=== PATIENT | male | born 1955 | race African-American/Black ===

== ENCOUNTER 2018-01-12 13:27 | Emergency (ER) | payer OTHER, MEDICAID ==
[~2018-01-12] VITALS: Ht 177.8 cm; Wt 86.6 kg
[2018-01-12 13:58] LABS: BASOPHILS % 0.6 % (0.0-2.0); EOSINOPHILS % 0.4 % (0.0-5.0); HEMATOCRIT. 39.8 % (42.0-52.0); HEMOGLOBIN. 13.1 g/dL (14.0-18.0); LYMPHOCYTES % 10.2 % (20.0-50.0); MEAN CORPUSCULAR HEMOGLOBIN 23.6 pg (28.0-32.0); MEAN CORPUSCULAR VOLUME 71.8 fL (80.0-94.0); MEAN PLATELET VOLUME 7.6 fl (7.4-10.4); MONOCYTES % 3.7 % (2.0-8.0); NEUTROPHILS % 85.1 % (40.0-76.0); PLATELET 232 x1000/uL (130-400); RED BLOOD CELL COUNT 5.54 mill/uL (4.7-6.1); RED CELL DISTRIBUTION WIDTH 17.9 % (11.6-14.6)
[2018-01-12 14:05] LABS: CHLORIDE 103 mEq/L (98-107)
[2018-01-12 14:06] LABS: PARTIAL THROMBOPLASTIN TIME 42.4 sec (23.4-31.0); PROTHROMBIN TIME 9.8 sec (9.1-11.1)
[2018-01-12 14:09] LABS: ETHANOL BLOOD < 10 mg/dL
[2018-01-12 14:12] LABS: LDL CHOLESTEROL 90 mg/dL (5-100)
[2018-01-12 14:13] LABS: CREATINE KINASE 287 IU/L (39-308)
[2018-01-12 15:07] LABS: CLARITY URINE CLEAR (CLEAR); COLOR URINE YELLOW (YELLOW); KETONES URINE NEGATIVE (NEGATIVE); LEUKOCYTE ESTERASE URINE NEGATIVE (NEGATIVE); NITRITE URINE NEGATIVE (NEGATIVE); OCCULT BLOOD URINE 2+ (NEGATIVE); PROTEIN URINE 2+ (NEGATIVE); SPECIFIC GRAVITY URINE 1.004 (1.005-1.030); UROBILINOGEN URINE 0.2 E.U./dL (0.2-1.0)
[2018-01-12 15:30] LABS: *AMPHETAMINES SCREEN URINE NEGATIVE (NEGATIVE); *BARBITURATES SCREEN URINE NEGATIVE (NEGATIVE); *BENZODIAZEPINES SCREEN URINE NEGATIVE (NEGATIVE); *COCAINE SCREEN URINE NEGATIVE (NEGATIVE); METHADONE URINE SCREEN NEGATIVE (NEGATIVE)
[2018-01-12 15:31] LABS: CANNABINOID URINE SCREEN NEGATIVE (NEGATIVE); OPIATES URINE SCREEN NEGATIVE (NEGATIVE); PHENCYCLIDINE URINE SCREEN NEGATIVE (NEGATIVE)
[2018-01-12] MEDS ORDERED: CLONIDINE 0.1MG TABLET PO PRN (16:30)
[2018-01-12] MEDS ORDERED: ACETAMINOPHEN 325MG TABLET PO PRN (16:30)
[2018-01-12] MEDS ORDERED: HYDROCODONE/ACETAMINOPHEN 5/325MG TABLET PO PRN (16:30)
[2018-01-12] MEDS ORDERED: ONDANSETRON HCL 4MG/2ML INJ IV PRN (16:30)
[2018-01-12] MEDS ORDERED: ACETAMINOPHEN 650MG SUPP PR PRN (16:30)
[2018-01-12] MEDS ORDERED: MAGNESIUM/ALUMINUM HYDROXIDE/SIMETHICONE 30ML UDC PO PRN (16:30)
[2018-01-12] MEDS ORDERED: SODIUM CHLORIDE 0.45% 1,000 ML IV SCH ×2 (16:30→21:45)
[2018-01-12] MEDS ORDERED: DIPHENHYDRAMINE 50MG/ML VIAL IV PRN (16:30)
[2018-01-12] MEDS ORDERED: GUAIFENESIN 200MG/10ML SUGAR FREE UDC PO PRN (16:30)
[2018-01-12] MEDS ORDERED: CEFTRIAXONE 1,000 MG in DEXTROSE 5% WATER 50 ML IV SCH (16:30)
[2018-01-12] MEDS ORDERED: AMLODIPINE 5MG TABLET PO SCH ×2 (16:30→21:45)
[2018-01-12] MEDS ORDERED: IPRATROPIUM/ALBUTEROL 0.5-3(2.5)MG/3ML NEB INH PRN (16:30)
[2018-01-12] MEDS ORDERED: DOCUSATE SODIUM 100MG CAPSULE PO PRN (16:30)
[2018-01-12] MEDS ORDERED: AZITHROMYCIN 500 MG in DEXT 5% WATER 250 ML IV SCH (16:30)
[2018-01-12] MEDS ORDERED: LEVOFLOXACIN 500MG PREMIX 100 ML IV SCH (16:45)
[2018-01-12] MEDS ORDERED: LORAZEPAM 0.5MG TABLET PO PRN (16:45)
[2018-01-12] MEDS ORDERED: IPRATROPIUM/ALBUTEROL 0.5-3(2.5)MG/3ML NEB HHN SCH ×2 (18:00→21:45)
[2018-01-12] MEDS ORDERED: NA PHOS,M-B/NA PHOS,DI-BA ENEMA 118ML PR PRN (21:00)
[2018-01-12] MEDS ORDERED: FAMOTIDINE 20MG/2ML VIAL IV SCH ×2 (21:00→21:45)
[2018-01-12] MEDS ORDERED: GUAIFENESIN 600MG ER TABLET PO SCH ×2 (21:00→21:45)
[2018-01-12] MEDS ORDERED: ATORVASTATIN CALCIUM 10MG TABLET PO SCH ×2 (21:00→21:45)
[2018-01-12 21:42] VITALS: BP 137/63
[2018-01-13] MEDS ORDERED: ASPIRIN 81MG EC TABLET PO SCH ×2 (09:00)
[2018-01-13] MEDS ORDERED: CLOPIDOGREL 75MG TABLET PO SCH ×2 (09:00)
[2018-01-13] MEDS ORDERED: LEVOFLOXACIN 250MG PREMIX 50 ML IV SCH (17:00)
== END 2018-01-12 21:43 | disposition left against medical advice (07) ==
LOC: ER 14:32 → SUPCPDRO 15:52 → EDBEDREQSVC 16:17 → EDBEDREQTM 16:17 → EDBEDREQ 16:17 → CANRESERV 21:21 → ENRESERV 21:21 → ER 21:43 → CANBEDREQ 23:26
DX: G45.9 Transient cerebral ischemic attack, unspecified (principal); I13.0 Hypertensive heart and chronic kidney disease with heart failure and stage 1 through stage 4 chronic kidney disease, or unspecified chronic kidney disease; N18.9 Chronic kidney disease, unspecified; I50.43 Acute on chronic combined systolic (congestive) and diastolic (congestive) heart failure; N17.9 Acute kidney failure, unspecified; I25.2 Old myocardial infarction; F41.9 Anxiety disorder, unspecified; Z98.61 Coronary angioplasty status; F12.10 Cannabis abuse, uncomplicated; F17.210 Nicotine dependence, cigarettes, uncomplicated; Z88.0 Allergy status to penicillin; Z71.6 Tobacco abuse counseling; Z88.5 Allergy status to narcotic agent; D72.829 Elevated white blood cell count, unspecified; D64.9 Anemia, unspecified; R94.31 Abnormal electrocardiogram [ECG] [EKG]
CPT/HCPCS: 36415; 70450; 71045; 76770; 80053; 80305; 81003; 82550; 82962; 83721; 83880; 84484; 85025; 85610; 85730; 87040; 87086; 93005; 93970; 96365; 99291; 99406; G0482; J1956

== ENCOUNTER 2019-03-25 19:58 | Emergency (ER) | payer MEDICAID, OTHER ==
[2019-03-25] MEDS ORDERED: ONDANSETRON HCL 4MG/2ML INJ IV STA (21:17)
[2019-03-25] MEDS ORDERED: ASPIRIN 81MG TABLET PO ONE (21:30)
[2019-03-25 22:01] LABS: CLARITY URINE CLEAR (CLEAR); COLOR URINE YELLOW (YELLOW); KETONES URINE NEGATIVE (NEGATIVE); LEUKOCYTE ESTERASE URINE NEGATIVE (NEGATIVE); NITRITE URINE NEGATIVE (NEGATIVE); OCCULT BLOOD URINE 1+ (NEGATIVE); PH URINE 6.5 (4.5-8.0); PROTEIN URINE 3+ (NEGATIVE); SPECIFIC GRAVITY URINE 1.014 (1.005-1.030)
[2019-03-25 22:03] LABS: BASOPHILS % 0.6 % (0.0-2.0); EOSINOPHILS % 1.6 % (0.0-5.0); HEMATOCRIT. 40.1 % (42.0-52.0); LYMPHOCYTES % 15.6 % (20.0-50.0); MEAN CORPUSCULAR HEMOGLOBIN 23.5 pg (28.0-32.0); MEAN CORPUSCULAR VOLUME 72.7 fL (80.0-94.0); MEAN PLATELET VOLUME 7.8 fl (7.4-10.4); MONOCYTES % 7.7 % (2.0-8.0); NEUTROPHILS % 74.5 % (40.0-76.0); PLATELET 206 x1000/uL (130-400); RED BLOOD CELL COUNT 5.52 mill/uL (4.7-6.1); RED CELL DISTRIBUTION WIDTH 17.2 % (11.6-14.6)
[2019-03-25 22:06] LABS: CHLORIDE 106 mEq/L (98-107); INR 0.9; PARTIAL THROMBOPLASTIN TIME 37.8 sec (23.4-31.0); PROTHROMBIN TIME 9.7 sec (9.6-11.0)
[2019-03-26 02:24] VITALS: BP 145/94
== END 2019-03-26 02:31 | disposition left against medical advice (07) ==
LOC: ER 19:58 → EDBEDREQ 03-26 01:20 → ER 03-26 02:31 → CANBEDREQ 03-26 03:10
DX: R07.89 Other chest pain (principal); R94.31 Abnormal electrocardiogram [ECG] [EKG]; I10 Essential (primary) hypertension
CPT/HCPCS: 36415; 71045; 74176; 80053; 81003; 83690; 83880; 84484; 85025; 85610; 85730; 93005; 96374; 99284; J2405

== ENCOUNTER 2019-03-27 15:22 | Inpatient (IN) | payer OTHER ==
[~2019-03-27] VITALS: Ht 177.8 cm; Wt 77.6 kg
[2019-03-27] MEDS ORDERED: ASPIRIN 81MG TABLET PO ONE (18:00)
[2019-03-27 18:21] LABS: BASOPHILS % 0.8 % (0.0-2.0); EOSINOPHILS % 0.8 % (0.0-5.0); HEMATOCRIT. 43.2 % (42.0-52.0); HEMOGLOBIN. 13.8 g/dL (14.0-18.0); LYMPHOCYTES % 19.8 % (20.0-50.0); MEAN CORPUSCULAR HEMOGLOBIN 23.4 pg (28.0-32.0); MEAN CORPUSCULAR VOLUME 73.1 fL (80.0-94.0); MEAN PLATELET VOLUME 7.4 fl (7.4-10.4); NEUTROPHILS % 71.6 % (40.0-76.0); PLATELET 225 x1000/uL (130-400); RED BLOOD CELL COUNT 5.91 mill/uL (4.7-6.1); RED CELL DISTRIBUTION WIDTH 17.4 % (11.6-14.6)
[2019-03-27 18:24] LABS: CHLORIDE 107 mEq/L (98-107)
[2019-03-27 18:29] LABS: ETHANOL BLOOD < 10 mg/dL
[2019-03-27 18:49] LABS: *BENZODIAZEPINES SCREEN URINE NEGATIVE (NEGATIVE)
[2019-03-27 18:50] LABS: *BARBITURATES SCREEN URINE NEGATIVE (NEGATIVE); *COCAINE SCREEN URINE NEGATIVE (NEGATIVE); METHADONE URINE SCREEN NEGATIVE (NEGATIVE); OPIATES URINE SCREEN NEGATIVE (NEGATIVE); PHENCYCLIDINE URINE SCREEN NEGATIVE (NEGATIVE)
[2019-03-27 18:51] LABS: CANNABINOID URINE SCREEN PRESUMTIVE POSITIVE (NEGATIVE)
[2019-03-27 18:52] LABS: *AMPHETAMINES SCREEN URINE NEGATIVE (NEGATIVE)
[2019-03-28 08:30] VITALS: BP 167/86
[2019-03-28] MEDS ORDERED: FURO-152 MT (10:49)
[2019-03-28] MEDS ORDERED: ASPI-1497 MT (10:49)
[2019-03-28] MEDS ORDERED: METO100T16 MT (10:49)
[2019-03-28] MEDS ORDERED: CLOP75TA4 PO (10:49)
[2019-03-28] MEDS ORDERED: ATOR20TA MT (10:49)
[2019-03-28] MEDS ORDERED: LORA-250 MT (10:49)
[2019-03-28] MEDS ORDERED: HYDRALAZINE 20MG/ML VIAL IV PRN (11:30)
[2019-03-28 12:00] VITALS: BP 179/96
[2019-03-28] MEDS ORDERED: REGADENOSON 0.4 MG/5 ML IV SCH (12:30)
[2019-03-28] MEDS: METOPROLOL TARTRATE 50MG TABLET PO SCH ×2 (12:45→21:45)
[2019-03-28] MEDS ORDERED: REGADENOSON 0.4 MG/5 ML IV ONE (13:27)
[2019-03-28] MEDS ORDERED: NITROGLYCERIN 0.4MG TABLET SL SL ONE (14:15)
[2019-03-28] MEDS: NITROGLYCERIN 0.4MG TABLET SL SL PRN (14:31)
[2019-03-28] MEDS ORDERED: LORAZEPAM 0.5MG TABLET PO PRN (14:45)
[2019-03-28] MEDS ORDERED: CLOPIDOGREL 75MG TABLET PO NR (15:00)
[2019-03-28] MEDS: NITROGLYCERIN OINT 1GM/INCH UDPKT TD SCH ×2 (15:00→17:43)
[2019-03-28 16:00] VITALS: BP 179/67
[2019-03-28] MEDS ORDERED: GUAIFENESIN 200MG/10ML SUGAR FREE UDC PO PRN (16:15)
[2019-03-28] MEDS ORDERED: ACETAMINOPHEN 325MG TABLET PO PRN (16:15)
[2019-03-28] MEDS ORDERED: ACETAMINOPHEN 650MG SUPP PR PRN (16:15)
[2019-03-28] MEDS ORDERED: DIPHENHYDRAMINE 50MG/ML VIAL IV PRN (16:15)
[2019-03-28] MEDS ORDERED: LORAZEPAM 2MG/ML CPJ IV PRN (16:15)
[2019-03-28] MEDS ORDERED: HYDROCODONE/ACETAMINOPHEN 5/325MG TABLET PO PRN (16:15)
[2019-03-28] MEDS ORDERED: IPRATROPIUM/ALBUTEROL 0.5-3(2.5)MG/3ML NEB HHN PRN (16:15)
[2019-03-28] MEDS ORDERED: DOCUSATE SODIUM 100MG CAPSULE PO PRN (16:15)
[2019-03-28 17:18] LABS: BASOPHILS % 0.5 % (0.0-2.0); EOSINOPHILS % 0.2 % (0.0-5.0); HEMATOCRIT. 42.6 % (42.0-52.0); HEMOGLOBIN. 13.3 g/dL (14.0-18.0); MEAN CORPUSCULAR HEMOGLOBIN 22.8 pg (28.0-32.0); MEAN CORPUSCULAR VOLUME 72.9 fL (80.0-94.0); MEAN PLATELET VOLUME 7.7 fl (7.4-10.4); NEUTROPHILS % 84.3 % (40.0-76.0); PLATELET 216 x1000/uL (130-400); RED BLOOD CELL COUNT 5.84 mill/uL (4.7-6.1)
[2019-03-28 17:24] LABS: INR 0.9; PROTHROMBIN TIME 10.2 sec (9.6-11.0)
[2019-03-28 17:38] LABS: BG BASE EXCESS 0.4 mmol/L (-2.0-2.0); BG CARBOXYHEMOGLOBIN 0.8 % (0.5-1.5); BG DEOXYHEMOGLOBIN 1.8 % (0.0-5.0); BG FRACTION INSPIRED OXYGEN 21; BG HCO3 ACT 22.4 mmol/L (22.0-26.0); BG METHEMOGLOBIN 0.6 % (0.0-1.5); BG OXYGEN SATURATION 98.2 % (92.0-98.5); BG OXYHEMOGLOBIN 96.8 % (94.0-97.0); BG PCO2 29.1 mmHg (35.0-45.0); BG PH 7.504 (7.350-7.450); BG SAMPLE SITE RIGHT RADIAL; BG TOTAL HEMOGLOBIN 14.1 g/dL (12.0-18.0); BG VENT MODE ROOM AIR
[2019-03-28] MEDS: FAMOTIDINE 20MG/2ML VIAL IV SCH (17:43)
[2019-03-28] MEDS ORDERED: AMLO5TAB88 MT (18:53)
[2019-03-28] MEDS ORDERED: LOSA100T32 MT (18:53)
[2019-03-28] MEDS ORDERED: CILO100T PO (18:53)
[2019-03-28 20:00] VITALS: BP 157/101
[2019-03-29] VITALS: BP 153/78
[2019-03-29] MEDS ORDERED: DEXT 5%/0.45% NACL 1000ML 1,000 ML IV SCH
[2019-03-29] MEDS: NITROGLYCERIN OINT 1GM/INCH UDPKT TD SCH ×3 (00:13→13:29)
[2019-03-29 04:00] VITALS: BP 147/71
[2019-03-29 08:00] VITALS: BP 148/78
[2019-03-29 08:01] LABS: BASOPHILS % 0.7 % (0.0-2.0); HEMATOCRIT. 37.4 % (42.0-52.0); HEMOGLOBIN. 12.3 g/dL (14.0-18.0); LYMPHOCYTES % 22.2 % (20.0-50.0); MEAN CORPUSCULAR HEMOGLOBIN 23.9 pg (28.0-32.0); MEAN CORPUSCULAR VOLUME 72.6 fL (80.0-94.0); MEAN PLATELET VOLUME 7.8 fl (7.4-10.4); MONOCYTES % 7.8 % (2.0-8.0); NEUTROPHILS % 68.3 % (40.0-76.0); PLATELET 194 x1000/uL (130-400); RED BLOOD CELL COUNT 5.16 mill/uL (4.7-6.1); RED CELL DISTRIBUTION WIDTH 16.9 % (11.6-14.6)
[2019-03-29 08:09] LABS: VITAMIN B12 SERUM 291 pg/mL (211-911)
[2019-03-29] MEDS ORDERED: ASPIRIN 81MG TABLET PO SCH (09:00)
[2019-03-29] MEDS ORDERED: CLOPIDOGREL 75MG TABLET PO SCH (09:00)
[2019-03-29] MEDS: METOPROLOL TARTRATE 50MG TABLET PO SCH (09:00)
[2019-03-29] MEDS ORDERED: POTASSIUM CHLORIDE 20MEQ TABLET SR PO NR (09:15)
[2019-03-29] MEDS: FAMOTIDINE 20MG/2ML VIAL IV SCH (09:44)
[2019-03-29 12:00] VITALS: BP 168/88
== END 2019-03-29 13:40 | disposition left against medical advice (07) | DRG 311 ==
LOC: ER 15:22 → 6WST 03-28 00:54 → ENRESERV 03-28 07:25
PROVIDERS: ADMIT Internal Medicine; ATTEND Internal Medicine
DX: I24.9 Acute ischemic heart disease, unspecified (principal); I13.0 Hypertensive heart and chronic kidney disease with heart failure and stage 1 through stage 4 chronic kidney disease, or unspecified chronic kidney disease; I47.2 Ventricular tachycardia; E78.5 Hyperlipidemia, unspecified; F17.210 Nicotine dependence, cigarettes, uncomplicated; F41.9 Anxiety disorder, unspecified; I25.5 Ischemic cardiomyopathy; I45.10 Unspecified right bundle-branch block; I50.9 Heart failure, unspecified; I73.9 Peripheral vascular disease, unspecified; J44.9 Chronic obstructive pulmonary disease, unspecified; I25.10 Atherosclerotic heart disease of native coronary artery without angina pectoris; R00.1 Bradycardia, unspecified; Z53.29 Procedure and treatment not carried out because of patient's decision for other reasons; F12.10 Cannabis abuse, uncomplicated; N18.9 Chronic kidney disease, unspecified; I25.2 Old myocardial infarction; Z79.02 Long term (current) use of antithrombotics/antiplatelets; Z79.82 Long term (current) use of aspirin; Z95.5 Presence of coronary angioplasty implant and graft; Z88.0 Allergy status to penicillin; Z88.6 Allergy status to analgesic agent
CPT/HCPCS: 36415; 36600; 71045; 76770; 78452; 80048; 80053; 80061; 80305; 80320; 82375; 82607; 82805; 83540; 83550; 84484; 85025; 93005; 93017; 93306; 99285; A9500; J0360; J2060; J2785; J3490; G0480

== ENCOUNTER 2020-01-21 10:28 | Inpatient (IN) | payer BC, MEDICAID ==
[~2020-01-21] VITALS: Ht 167.6 cm; Wt 74.8 kg
[~2020-01-21 10:28] MED LIST: AMLO5TAB88 MT; ASPI-1497 MT; ATOR20TA MT; CILO100T PO; CLOP75TA4 PO; FURO-152 MT; LORA-250 MT; LOSA100T32 MT; METO100T16 MT
[2020-01-21] MEDS ORDERED: FUROSEMIDE 20MG/2ML VIAL IVP ONE (11:15)
[2020-01-21] MEDS ORDERED: LORAZEPAM 2MG/ML CPJ IV ONE (11:15)
[2020-01-21 11:16] LABS: BASOPHILS % 0.8 % (0.0-2.0); EOSINOPHILS % 1.1 % (0.0-5.0); HEMOGLOBIN. 10.7 g/dL (14.0-18.0); LYMPHOCYTES % 9.4 % (20.0-50.0); MEAN CORPUSCULAR HEMOGLOBIN 23.7 pg (28.0-32.0); MEAN CORPUSCULAR VOLUME 73.2 fL (80.0-94.0); MEAN PLATELET VOLUME 7.5 fl (7.4-10.4); MONOCYTES % 5.8 % (2.0-8.0); NEUTROPHILS % 82.9 % (40.0-76.0); PLATELET 341 x1000/uL (130-400); RED BLOOD CELL COUNT 4.51 mill/uL (4.7-6.1)
[2020-01-21 11:25] LABS: CHLORIDE 108 mEq/L (98-107)
[2020-01-21 11:27] LABS: PROTHROMBIN TIME 10.4 sec (9.6-11.0)
[2020-01-21 11:28] LABS: ETHANOL BLOOD < 10 mg/dL
[2020-01-21] MEDS: FUROSEMIDE 40MG/4ML VIAL IVP SCH (13:00)
[2020-01-21] MEDS: CARVEDILOL 3.125 MG TABLET PO SCH ×2 (13:42→21:46)
[2020-01-21] MEDS: CLOPIDOGREL 75MG TABLET PO SCH (13:42)
[2020-01-21] MEDS: ASPIRIN 81MG TABLET PO SCH (13:46)
[2020-01-21 13:56] VITALS: BP 144/68
[2020-01-21] MEDS: NITROGLYCERIN OINT 1GM/INCH UDPKT TD SCH ×2 (14:00→21:47)
[2020-01-21 15:38] VITALS: BP 144/91
[2020-01-21 16:00] VITALS: BP 133/79
[2020-01-21] MEDS ORDERED: LORAZEPAM 2MG/ML CPJ IV PRN (16:15)
[2020-01-21 20:00] VITALS: BP 145/97
[2020-01-21] MEDS ORDERED: *PATIENT'S OWN MEDICATION STORAGE XX SCH (20:30)
[2020-01-21] MEDS: ENOXAPARIN 30MG/0.3ML SYR SUBCUT SCH (21:46)
[2020-01-22] VITALS: BP 165/76
[2020-01-22] MEDS: LORAZEPAM 1MG TABLET PO PRN ×3 (00:05→18:08)
[2020-01-22 01:00] VITALS: BP 149/74
[2020-01-22 04:00] VITALS: BP 144/95
[2020-01-22] MEDS: NITROGLYCERIN OINT 1GM/INCH UDPKT TD SCH ×3 (05:14→21:00)
[2020-01-22 06:18] LABS: BASOPHILS % 0.4 % (0.0-2.0); EOSINOPHILS % 0.5 % (0.0-5.0); HEMATOCRIT. 32.6 % (42.0-52.0); HEMOGLOBIN. 10.4 g/dL (14.0-18.0); LYMPHOCYTES % 10.9 % (20.0-50.0); MEAN CORPUSCULAR HEMOGLOBIN 23.4 pg (28.0-32.0); MEAN CORPUSCULAR VOLUME 73.6 fL (80.0-94.0); MONOCYTES % 5.5 % (2.0-8.0); NEUTROPHILS % 82.7 % (40.0-76.0); PLATELET 332 x1000/uL (130-400); RED BLOOD CELL COUNT 4.43 mill/uL (4.7-6.1); RED CELL DISTRIBUTION WIDTH 18.6 % (11.6-14.6)
[2020-01-22 08:00] VITALS: BP 136/82
[2020-01-22] MEDS: FUROSEMIDE 40MG/4ML VIAL IVP SCH ×3 (09:00→21:43)
[2020-01-22] MEDS: ASPIRIN 81MG TABLET PO SCH (09:09)
[2020-01-22] MEDS: CLOPIDOGREL 75MG TABLET PO SCH (09:09)
[2020-01-22] MEDS: CARVEDILOL 3.125 MG TABLET PO SCH ×2 (09:10→20:57)
[2020-01-22] MEDS ORDERED: FUROSEMIDE 40MG TABLET PO SCH (09:45)
[2020-01-22] MEDS ORDERED: SODIUM POLYSTYRENE SULFONATE 15 G/60 ML BOT PO NR (10:00)
[2020-01-22 12:00] VITALS: BP 144/104
[2020-01-22] MEDS ORDERED: *PATIENT'S OWN MEDICATION STORAGE XX SCH (13:30)
[2020-01-22] MEDS ORDERED: DIPHENHYDRAMINE 50MG/ML VIAL IV PRN (14:15)
[2020-01-22] MEDS ORDERED: HYDROCODONE/ACETAMINOPHEN 5/325MG TABLET PO PRN (14:15)
[2020-01-22] MEDS ORDERED: IPRATROPIUM/ALBUTEROL 0.5-3(2.5)MG/3ML NEB HHN PRN (14:15)
[2020-01-22 20:00] VITALS: BP 142/86
[2020-01-22] MEDS: ENOXAPARIN 30MG/0.3ML SYR SUBCUT SCH (20:57)
[2020-01-22] MEDS ORDERED: LACTULOSE 20G/30ML UDC PO PRN (21:00)
[2020-01-23] VITALS: BP 149/89
[2020-01-23 04:00] VITALS: BP 169/110
[2020-01-23] MEDS: NITROGLYCERIN OINT 1GM/INCH UDPKT TD SCH ×2 (05:27→13:19)
[2020-01-23] MEDS: FUROSEMIDE 40MG/4ML VIAL IVP SCH ×2 (05:47→13:03)
[2020-01-23 07:06] LABS: EOSINOPHILS % 1.8 % (0.0-5.0); HEMOGLOBIN. 10.1 g/dL (14.0-18.0); LYMPHOCYTES % 18.5 % (20.0-50.0); MEAN CORPUSCULAR HEMOGLOBIN 23.8 pg (28.0-32.0); MEAN CORPUSCULAR VOLUME 73.3 fL (80.0-94.0); MONOCYTES % 7.5 % (2.0-8.0); NEUTROPHILS % 71.2 % (40.0-76.0); PLATELET 291 x1000/uL (130-400); RED BLOOD CELL COUNT 4.23 mill/uL (4.7-6.1); RED CELL DISTRIBUTION WIDTH 17.8 % (11.6-14.6)
[2020-01-23 08:00] VITALS: BP 157/92
[2020-01-23] MEDS ORDERED: AMLODIPINE 2.5MG TABLET PO SCH (09:00)
[2020-01-23] MEDS: ASPIRIN 81MG TABLET PO SCH (10:12)
[2020-01-23] MEDS: CARVEDILOL 3.125 MG TABLET PO SCH (10:13)
[2020-01-23] MEDS: CLOPIDOGREL 75MG TABLET PO SCH (10:13)
[2020-01-23] MEDS ORDERED: COR6 MT (11:45)
[2020-01-23] MEDS ORDERED: AMLO5TAB4 MT (11:45)
[2020-01-23] MEDS ORDERED: CLOP75TA4 MT (11:45)
[2020-01-23] MEDS ORDERED: FURO80TA87 MT (11:45)
[2020-01-23] MEDS ORDERED: LOSA25TA3 MT (11:45)
[2020-01-23] MEDS ORDERED: ASPI-1497 MT (11:45)
[2020-01-23] MEDS ORDERED: FURO-151 MT (11:45)
[2020-01-23 12:00] VITALS: BP 121/76
[2020-01-23 16:00] VITALS: BP 142/86
[2020-01-23] MEDS ORDERED: NICO-645 TP (17:13)
[2020-01-23] MEDS ORDERED: LORA-249 MT (17:15)
[2020-01-23 19:04] VITALS: BP 121/76
== END 2020-01-23 20:17 | disposition home or self-care (01) | DRG 205 ==
LOC: ER 10:28 → 6WST 12:05 → EDBEDREQ 12:09 → EDBEDREQTM 12:09 → ENRESERV 13:19
PROVIDERS: ADMIT Internal Medicine; ATTEND Internal Medicine
DX: M94.0 Chondrocostal junction syndrome [Tietze] (principal); I50.23 Acute on chronic systolic (congestive) heart failure; I13.0 Hypertensive heart and chronic kidney disease with heart failure and stage 1 through stage 4 chronic kidney disease, or unspecified chronic kidney disease; J91.0 Malignant pleural effusion; D64.9 Anemia, unspecified; E78.00 Pure hypercholesterolemia, unspecified; E78.5 Hyperlipidemia, unspecified; E87.5 Hyperkalemia; F41.9 Anxiety disorder, unspecified; I25.10 Atherosclerotic heart disease of native coronary artery without angina pectoris; I25.5 Ischemic cardiomyopathy; I34.0 Nonrheumatic mitral (valve) insufficiency; K21.9 Gastro-esophageal reflux disease without esophagitis; N18.9 Chronic kidney disease, unspecified; Z20.828 Contact with and (suspected) exposure to other viral communicable diseases; Z53.20 Procedure and treatment not carried out because of patient's decision for unspecified reasons; Z79.02 Long term (current) use of antithrombotics/antiplatelets; Z87.891 Personal history of nicotine dependence; Z95.1 Presence of aortocoronary bypass graft; I25.2 Old myocardial infarction; Z95.5 Presence of coronary angioplasty implant and graft; Z88.5 Allergy status to narcotic agent; Z88.0 Allergy status to penicillin; Z79.899 Other long term (current) drug therapy; I70.203 Unspecified atherosclerosis of native arteries of extremities, bilateral legs; R06.03 Acute respiratory distress
CPT/HCPCS: 36415; 71045; 80048; 80053; 80320; 83605; 83735; 83880; 84484; 85025; 86850; 86900; 87426; 93005; 93306; 93970; 99285; J1650; J1940; J2060; G0480

== ENCOUNTER 2020-03-03 18:55 | Emergency (ER) | payer BC, MEDICAID, MEDICARE ==
[~2020-03-03] VITALS: Ht 177.8 cm; Wt 68.0 kg
[~2020-03-03 18:55] MED LIST changes: +AMLO5TAB4 MT; -CILO100T PO; +CLOP-31 MT; +CLOP-31 PO; -CLOP75TA4 PO; +COR6 MT; +FURO-151 MT; -FURO-152 MT; +FURO80TA87 MT; +LORA-249 MT; -LOSA100T32 MT; +LOSA25TA3 MT; -METO100T16 MT; +NICO-645 TP
[2020-03-03 19:04] VITALS: BP 163/102
[2020-03-03] MEDS ORDERED: LORAZEPAM 0.5MG TABLET PO ONE (20:00)
== END 2020-03-03 20:32 | disposition home or self-care (01) ==
LOC: ER 18:55
DX: Z76.0 Encounter for issue of repeat prescription (principal); F41.9 Anxiety disorder, unspecified; E78.00 Pure hypercholesterolemia, unspecified; I11.9 Hypertensive heart disease without heart failure; I25.2 Old myocardial infarction; F17.210 Nicotine dependence, cigarettes, uncomplicated; Z95.1 Presence of aortocoronary bypass graft; Z88.0 Allergy status to penicillin; Z88.5 Allergy status to narcotic agent; Z79.82 Long term (current) use of aspirin
CPT/HCPCS: 99283

== ENCOUNTER 2020-03-06 14:18 | Emergency (ER) | payer MEDICARE ==
[~2020-03-06] VITALS: Ht 177.8 cm; Wt 71.0 kg
[2020-03-06] MEDS ORDERED: LORAZEPAM 0.5MG TABLET PO ONE (14:30)
[2020-03-06 14:48] VITALS: BP 150/78
== END 2020-03-06 14:48 | disposition home or self-care (01) ==
LOC: ER 14:18
DX: Z76.0 Encounter for issue of repeat prescription (principal); F41.1 Generalized anxiety disorder; I10 Essential (primary) hypertension
CPT/HCPCS: 99283

== ENCOUNTER 2020-03-07 04:14 | Emergency (ER) | payer MEDICARE ==
[~2020-03-07] VITALS: Ht 177.8 cm; Wt 71.0 kg
[2020-03-07] MEDS ORDERED: ASPIRIN 81MG TABLET PO ONE ×2 (04:45→06:30)
[2020-03-07 05:22] LABS: BASOPHILS % 0.4 % (0.0-2.0); EOSINOPHILS % 4.9 % (0.0-5.0); HEMATOCRIT. 29.3 % (42.0-52.0); HEMOGLOBIN. 9.3 g/dL (14.0-18.0); LYMPHOCYTES % 23.2 % (20.0-50.0); MEAN CORPUSCULAR HEMOGLOBIN 22.4 pg (28.0-32.0); MEAN CORPUSCULAR VOLUME 70.4 fL (80.0-94.0); MEAN PLATELET VOLUME 8.7 fl (7.4-10.4); MONOCYTES % 9.9 % (2.0-8.0); NEUTROPHILS % 61.6 % (40.0-76.0); PLATELET 162 x1000/uL (130-400); RED BLOOD CELL COUNT 4.16 mill/uL (4.7-6.1); RED CELL DISTRIBUTION WIDTH 18.6 % (11.6-14.6)
[2020-03-07 05:34] LABS: CHLORIDE 105 mEq/L (98-107)
[2020-03-07] MEDS ORDERED: NITROGLYCERIN OINT 1GM/INCH UDPKT TD ONE (06:30)
[2020-03-07] MEDS ORDERED: FUROSEMIDE 20MG/2ML VIAL IVP ONE (06:30)
[2020-03-07 07:24] LABS: PARTIAL THROMBOPLASTIN TIME 39.6 sec (23.4-31.0); PROTHROMBIN TIME 10.7 sec (9.6-11.0)
[2020-03-07] MEDS ORDERED: LORAZEPAM 2MG/ML CPJ IV ONE (08:00)
[2020-03-07] MEDS ORDERED: LORAZEPAM 0.5MG TABLET PO PRN (10:15)
[2020-03-07] MEDS ORDERED: CARVEDILOL 3.125 MG TABLET PO SCH ×2 (10:15→21:00)
[2020-03-07] MEDS ORDERED: CITALOPRAM HYDROBROMIDE 10MG TABLET PO SCH (11:00)
[2020-03-07] MEDS ORDERED: CLOPIDOGREL 75MG TABLET PO SCH (11:00)
[2020-03-07] MEDS ORDERED: LOSARTAN POTASSIUM 25 MG TABLET PO SCH (11:00)
[2020-03-07] MEDS ORDERED: FUROSEMIDE 40MG TABLET PO SCH (11:00)
[2020-03-07] MEDS ORDERED: ASPIRIN 81MG TABLET PO SCH (11:00)
[2020-03-07] MEDS ORDERED: AMLODIPINE 5MG TABLET PO SCH (11:00)
[2020-03-07 14:30] VITALS: BP 145/106
[2020-03-07] MEDS ORDERED: ATORVASTATIN CALCIUM 20MG TABLET PO SCH (21:00)
== END 2020-03-07 14:41 | disposition left against medical advice (07) ==
LOC: ER 04:14 → EDBEDREQ 08:19 → SUPCPDRO 13:56 → ER 14:41 → CANBEDREQ 15:25
DX: I51.9 Heart disease, unspecified (principal); I10 Essential (primary) hypertension; Z76.0 Encounter for issue of repeat prescription; Z88.0 Allergy status to penicillin; Z88.5 Allergy status to narcotic agent; Z79.899 Other long term (current) drug therapy; Z79.82 Long term (current) use of aspirin; E78.00 Pure hypercholesterolemia, unspecified; Z95.1 Presence of aortocoronary bypass graft; Z91.19 Patient's noncompliance with other medical treatment and regimen
CPT/HCPCS: 36415; 71045; 80053; 83880; 84484; 85025; 85610; 85730; 93005; 96374; 99291; J1940; J2060

== ENCOUNTER 2020-03-09 13:50 | Emergency (ER) | payer MEDICARE ==
[~2020-03-09] VITALS: Ht 172.7 cm; Wt 71.0 kg
[2020-03-09 13:57] VITALS: BP 153/93
== END 2020-03-09 16:07 | disposition home or self-care (01) ==
LOC: ER 13:58
DX: F41.9 Anxiety disorder, unspecified (principal); E78.00 Pure hypercholesterolemia, unspecified; I10 Essential (primary) hypertension; Z79.899 Other long term (current) drug therapy; Z88.0 Allergy status to penicillin; Z88.6 Allergy status to analgesic agent; Z79.82 Long term (current) use of aspirin; Z95.1 Presence of aortocoronary bypass graft
CPT/HCPCS: 99283

== ENCOUNTER 2020-03-12 10:29 | Emergency (ER) | payer MEDICARE ==
[~2020-03-12] VITALS: Ht 167.6 cm; Wt 71.0 kg
[2020-03-12 10:32] VITALS: BP 161/80
== END 2020-03-12 11:00 | disposition home or self-care (01) ==
LOC: ER 10:29
DX: Z76.0 Encounter for issue of repeat prescription (principal); F41.9 Anxiety disorder, unspecified; I10 Essential (primary) hypertension; E78.00 Pure hypercholesterolemia, unspecified; Z88.5 Allergy status to narcotic agent; Z88.0 Allergy status to penicillin; Z95.1 Presence of aortocoronary bypass graft
CPT/HCPCS: 99283

== ENCOUNTER 2020-03-21 18:30 | Emergency (ER) | payer MEDICARE ==
[~2020-03-21] VITALS: Ht 177.8 cm; Wt 73.0 kg
[2020-03-21] MEDS: HYDROXYZINE 25MG TABLET PO ONE (22:02)
[2020-03-21 22:52] VITALS: BP 148/83
== END 2020-03-21 22:53 | disposition home or self-care (01) ==
LOC: ER 18:30
DX: R06.02 Shortness of breath (principal); F41.9 Anxiety disorder, unspecified; E78.00 Pure hypercholesterolemia, unspecified; I10 Essential (primary) hypertension; I25.2 Old myocardial infarction; Z79.82 Long term (current) use of aspirin; Z79.899 Other long term (current) drug therapy; Z88.0 Allergy status to penicillin; Z88.5 Allergy status to narcotic agent
CPT/HCPCS: 93005; 99283

== ENCOUNTER 2020-03-23 20:15 | Emergency (ER) | payer MEDICARE ==
[~2020-03-23] VITALS: Ht 177.8 cm; Wt 70.0 kg
[2020-03-23] MEDS ORDERED: TRAZODONE HCL 50MG TABLET PO SCH (21:15)
[2020-03-23] MEDS ORDERED: HYDR-3992 MT (21:21)
[2020-03-23 21:51] VITALS: BP 151/78
== END 2020-03-23 21:56 | disposition home or self-care (01) ==
LOC: ER 20:15
DX: F41.9 Anxiety disorder, unspecified (principal); G47.00 Insomnia, unspecified; E78.00 Pure hypercholesterolemia, unspecified; I10 Essential (primary) hypertension; Z98.890 Other specified postprocedural states; Z79.899 Other long term (current) drug therapy
CPT/HCPCS: 93005; 99283

== ENCOUNTER 2020-03-25 14:39 | Emergency (ER) | payer MEDICARE ==
[~2020-03-25] VITALS: Ht 177.8 cm; Wt 70.9 kg
[~2020-03-25 14:39] MED LIST changes: +HYDR-3992 MT
[2020-03-25 18:02] LABS: CLARITY URINE CLEAR (CLEAR); COLOR URINE YELLOW (YELLOW); KETONES URINE NEGATIVE (NEGATIVE); LEUKOCYTE ESTERASE URINE NEGATIVE (NEGATIVE); NITRITE URINE NEGATIVE (NEGATIVE); OCCULT BLOOD URINE NEGATIVE (NEGATIVE); PROTEIN URINE 3+ (NEGATIVE); UROBILINOGEN URINE 0.2 E.U./dL (0.2-1.0)
[2020-03-25 18:55] LABS: *AMPHETAMINES SCREEN URINE NEGATIVE (NEGATIVE)
[2020-03-25 18:56] LABS: *BARBITURATES SCREEN URINE NEGATIVE (NEGATIVE); *BENZODIAZEPINES SCREEN URINE NEGATIVE (NEGATIVE); *COCAINE SCREEN URINE NEGATIVE (NEGATIVE); CANNABINOID URINE SCREEN NEGATIVE (NEGATIVE); METHADONE URINE SCREEN NEGATIVE (NEGATIVE); OPIATES URINE SCREEN NEGATIVE (NEGATIVE)
[2020-03-25 19:03] LABS: PHENCYCLIDINE URINE SCREEN NEGATIVE (NEGATIVE)
[2020-03-25 19:34] LABS: BASOPHILS % 0.3 % (0.0-2.0); EOSINOPHILS % 2.6 % (0.0-5.0); HEMOGLOBIN. 11.2 g/dL (14.0-18.0); LYMPHOCYTES % 20.8 % (20.0-50.0); MEAN CORPUSCULAR HEMOGLOBIN 21.9 pg (28.0-32.0); MEAN CORPUSCULAR VOLUME 70.9 fL (80.0-94.0); MEAN PLATELET VOLUME 8.5 fl (7.4-10.4); MONOCYTES % 5.8 % (2.0-8.0); NEUTROPHILS % 70.5 % (40.0-76.0); PLATELET 169 x1000/uL (130-400); RED BLOOD CELL COUNT 5.08 mill/uL (4.7-6.1); RED CELL DISTRIBUTION WIDTH 20.5 % (11.6-14.6)
[2020-03-25 19:40] LABS: CHLORIDE 107 mEq/L (98-107)
[2020-03-25 20:59] VITALS: BP 147/96
[2020-03-27] MEDS ORDERED: ESCI10TA MT (12:01)
[2020-03-27] MEDS ORDERED: LORA-250 MT (12:01)
== END 2020-03-25 21:03 | disposition home or self-care (01) ==
LOC: ER 14:39
DX: T50.905A Adverse effect of unspecified drugs, medicaments and biological substances, initial encounter (principal); N28.9 Disorder of kidney and ureter, unspecified; I10 Essential (primary) hypertension; Z00.00 Encounter for general adult medical examination without abnormal findings
CPT/HCPCS: 36415; 80053; 80305; 81003; 85025; 93005; 99284

== ENCOUNTER 2020-04-01 15:52 | Emergency (ER) | payer MEDICARE ==
[~2020-04-01] VITALS: Ht 177.8 cm; Wt 71.0 kg
[~2020-04-01 15:52] MED LIST changes: -AMLO5TAB4 MT; -CLOP-31 MT; +ESCI10TA MT; -HYDR-3992 MT; -LORA-250 MT
[2020-04-01] MEDS ORDERED: ASPIRIN 81MG TABLET PO ONE (16:15)
[2020-04-01] MEDS ORDERED: LORAZEPAM 1MG TABLET PO ONE ×2 (16:30→17:30)
[2020-04-01 16:36] LABS: BASOPHILS % 0.4 % (0.0-2.0); EOSINOPHILS % 2.2 % (0.0-5.0); HEMATOCRIT. 30.8 % (42.0-52.0); HEMOGLOBIN. 9.9 g/dL (14.0-18.0); LYMPHOCYTES % 18.2 % (20.0-50.0); MEAN CORPUSCULAR HEMOGLOBIN 22.4 pg (28.0-32.0); MEAN PLATELET VOLUME 8.6 fl (7.4-10.4); MONOCYTES % 9.1 % (2.0-8.0); NEUTROPHILS % 70.1 % (40.0-76.0); PLATELET 183 x1000/uL (130-400); RED BLOOD CELL COUNT 4.41 mill/uL (4.7-6.1); RED CELL DISTRIBUTION WIDTH 19.8 % (11.6-14.6)
[2020-04-01 16:40] LABS: CHLORIDE 103 mEq/L (98-107)
[2020-04-01] MEDS: LORAZEPAM 2MG/ML CPJ IV ONE ×2 (16:48→16:49)
[2020-04-01 17:04] LABS: PLATELET ESTIMATE NORMAL
[2020-04-01] MEDS ORDERED: FUROSEMIDE 40MG TABLET PO ONE (17:15)
[2020-04-01 17:30] VITALS: BP 144/70
== END 2020-04-01 17:30 | disposition left against medical advice (07) ==
LOC: ER 15:52
DX: R06.03 Acute respiratory distress (principal); F41.9 Anxiety disorder, unspecified; I42.9 Cardiomyopathy, unspecified; J44.1 Chronic obstructive pulmonary disease with (acute) exacerbation; E78.00 Pure hypercholesterolemia, unspecified; I11.0 Hypertensive heart disease with heart failure; I50.9 Heart failure, unspecified; Z88.0 Allergy status to penicillin; Z88.5 Allergy status to narcotic agent; Z79.899 Other long term (current) drug therapy
CPT/HCPCS: 36415; 71045; 80053; 83880; 84484; 85025; 93005; 99285

== ENCOUNTER 2020-04-01 22:21 | Emergency (ER) | payer MEDICARE ==
[~2020-04-01] VITALS: Ht 177.8 cm; Wt 71.0 kg
[2020-04-01 23:15] VITALS: BP 156/84
== END 2020-04-01 23:32 | disposition home or self-care (01) ==
LOC: ER 22:21
DX: R68.89 Other general symptoms and signs (principal); Z99.81 Dependence on supplemental oxygen; F41.9 Anxiety disorder, unspecified; E78.00 Pure hypercholesterolemia, unspecified; I10 Essential (primary) hypertension; Z98.890 Other specified postprocedural states; Z79.82 Long term (current) use of aspirin; Z79.899 Other long term (current) drug therapy; Z88.0 Allergy status to penicillin; Z88.5 Allergy status to narcotic agent
CPT/HCPCS: 99281

== ENCOUNTER 2020-04-19 20:28 | Emergency (ER) | payer MEDICARE ==
[~2020-04-19] VITALS: Ht 177.8 cm; Wt 74.7 kg
[2020-04-19] MEDS ORDERED: ACETAMINOPHEN 325MG TABLET PO STA (23:06)
[2020-04-19 23:30] VITALS: BP 130/80
[2020-04-19 23:30] LABS: CLARITY URINE CLEAR (CLEAR); COLOR URINE YELLOW (YELLOW); KETONES URINE NEGATIVE (NEGATIVE); LEUKOCYTE ESTERASE URINE NEGATIVE (NEGATIVE); NITRITE URINE NEGATIVE (NEGATIVE); OCCULT BLOOD URINE TRACE (NEGATIVE); PH URINE 5.5 (4.5-8.0); PROTEIN URINE 4+ (NEGATIVE); SPECIFIC GRAVITY URINE 1.021 (1.005-1.030); UROBILINOGEN URINE 0.2 E.U./dL (0.2-1.0)
[2020-04-19 23:31] LABS: BASOPHILS % 0.6 % (0.0-2.0); HEMATOCRIT. 33.6 % (42.0-52.0); HEMOGLOBIN. 10.6 g/dL (14.0-18.0); LYMPHOCYTES % 13.4 % (20.0-50.0); MEAN CORPUSCULAR HEMOGLOBIN 22.3 pg (28.0-32.0); MEAN CORPUSCULAR VOLUME 70.2 fL (80.0-94.0); MEAN PLATELET VOLUME 8.5 fl (7.4-10.4); MONOCYTES % 4.6 % (2.0-8.0); NEUTROPHILS % 80.4 % (40.0-76.0); PLATELET 188 x1000/uL (130-400); RED BLOOD CELL COUNT 4.78 mill/uL (4.7-6.1); RED CELL DISTRIBUTION WIDTH 20.7 % (11.6-14.6)
[2020-04-19 23:33] LABS: CHLORIDE 106 mEq/L (98-107)
[2020-04-19] MEDS ORDERED: FUROSEMIDE 40MG TABLET PO STA (23:40)
[2020-04-19] MEDS ORDERED: DIPHENHYDRAMINE 50MG/ML VIAL IM STA (23:48)
[2020-04-19] MEDS ORDERED: ACET-2708 PO (23:52)
[2020-04-19] MEDS ORDERED: DOCU100T MT (23:52)
== END 2020-04-20 01:13 | disposition home or self-care (01) ==
LOC: ER 20:28
DX: I11.0 Hypertensive heart disease with heart failure (principal); I50.9 Heart failure, unspecified; F41.9 Anxiety disorder, unspecified; J06.9 Acute upper respiratory infection, unspecified; K59.00 Constipation, unspecified; M54.9 Dorsalgia, unspecified; Z88.0 Allergy status to penicillin; Z88.5 Allergy status to narcotic agent
CPT/HCPCS: 36415; 71045; 80053; 81003; 85025; 93005; 96372; 99285; J1200

== ENCOUNTER 2020-04-20 06:53 | Emergency (ER) | payer MEDICARE ==
[~2020-04-20] VITALS: Ht 177.8 cm; Wt 74.8 kg
[~2020-04-20 06:53] MED LIST changes: +ACET-2708 PO; +DOCU100T MT
[2020-04-20 07:40] VITALS: BP 136/88
[2020-04-20] MEDS ORDERED: MAGNESIUM HYDROXIDE 400MG/5ML 30ML UDC PO ONE (08:00)
[2020-04-20] MEDS ORDERED: LORAZEPAM 1MG TABLET PO ONE (08:00)
[2020-04-20] MEDS ORDERED: MAGNESIUM CITRATE 300ML SOLUTION PO ONE (08:00)
[2020-04-20 08:04] LABS: BASOPHILS % 0.8 % (0.0-2.0); HEMOGLOBIN. 10.5 g/dL (14.0-18.0); LYMPHOCYTES % 10.6 % (20.0-50.0); MEAN CORPUSCULAR HEMOGLOBIN 22.3 pg (28.0-32.0); MEAN CORPUSCULAR VOLUME 70.2 fL (80.0-94.0); MEAN PLATELET VOLUME 8.4 fl (7.4-10.4); MONOCYTES % 5.2 % (2.0-8.0); NEUTROPHILS % 82.4 % (40.0-76.0); PLATELET 177 x1000/uL (130-400); RED BLOOD CELL COUNT 4.71 mill/uL (4.7-6.1); RED CELL DISTRIBUTION WIDTH 20.7 % (11.6-14.6)
[2020-04-20 08:10] LABS: CHLORIDE 106 mEq/L (98-107)
== END 2020-04-20 10:15 | disposition home or self-care (01) ==
LOC: ER 08:02
DX: I11.0 Hypertensive heart disease with heart failure (principal); I50.9 Heart failure, unspecified; K59.00 Constipation, unspecified; I42.9 Cardiomyopathy, unspecified; F41.9 Anxiety disorder, unspecified; E78.00 Pure hypercholesterolemia, unspecified; Z98.890 Other specified postprocedural states; Z79.899 Other long term (current) drug therapy; Z79.82 Long term (current) use of aspirin; Z88.0 Allergy status to penicillin; Z88.5 Allergy status to narcotic agent
CPT/HCPCS: 36415; 71045; 80053; 83880; 84484; 85025; 93005; 99285

== ENCOUNTER 2020-05-07 02:55 | Emergency (ER) | payer MEDICARE ==
[~2020-05-07] VITALS: Ht 177.8 cm; Wt 77.0 kg
[2020-05-07] MEDS ORDERED: HYDR50CA PO (03:37)
[2020-05-07] MEDS ORDERED: DIPHENHYDRAMINE 50MG/ML VIAL IM NR (03:45)
[2020-05-07 03:50] VITALS: BP 124/60
== END 2020-05-07 04:01 | disposition home or self-care (01) ==
LOC: EDUNIT# 02:55 → ER 02:55
DX: F41.9 Anxiety disorder, unspecified (principal); G47.00 Insomnia, unspecified; I25.10 Atherosclerotic heart disease of native coronary artery without angina pectoris; I11.0 Hypertensive heart disease with heart failure; I50.9 Heart failure, unspecified; I25.2 Old myocardial infarction; Z88.0 Allergy status to penicillin; Z88.6 Allergy status to analgesic agent; Z95.1 Presence of aortocoronary bypass graft
CPT/HCPCS: 99281; J1200

== ENCOUNTER 2020-05-07 17:20 | Emergency (ER) | payer MEDICARE ==
[~2020-05-07] VITALS: Ht 177.8 cm; Wt 77.0 kg
[~2020-05-07 17:20] MED LIST changes: +HYDR50CA PO
[2020-05-07 17:22] VITALS: BP 159/97
[2020-05-07 18:29] LABS: BASOPHILS % 0.5 % (0.0-2.0); EOSINOPHILS % 0.8 % (0.0-5.0); HEMATOCRIT. 33.3 % (42.0-52.0); HEMOGLOBIN. 10.3 g/dL (14.0-18.0); LYMPHOCYTES % 12.7 % (20.0-50.0); MEAN CORPUSCULAR VOLUME 70.9 fL (80.0-94.0); MEAN PLATELET VOLUME 8.4 fl (7.4-10.4); MONOCYTES % 6.5 % (2.0-8.0); NEUTROPHILS % 79.5 % (40.0-76.0); PLATELET 246 x1000/uL (130-400); RED BLOOD CELL COUNT 4.69 mill/uL (4.7-6.1); RED CELL DISTRIBUTION WIDTH 20.5 % (11.6-14.6)
== END 2020-05-07 19:19 | disposition home or self-care (01) ==
LOC: ER 17:20
DX: F41.9 Anxiety disorder, unspecified (principal); I25.10 Atherosclerotic heart disease of native coronary artery without angina pectoris; I11.0 Hypertensive heart disease with heart failure; I50.9 Heart failure, unspecified; I25.2 Old myocardial infarction; Z88.0 Allergy status to penicillin; Z88.6 Allergy status to analgesic agent; Z95.1 Presence of aortocoronary bypass graft
CPT/HCPCS: 36415; 80048; 85025; 93005; 99284

== ENCOUNTER 2020-07-13 16:00 | Inpatient (IN) | payer MEDICARE ==
[~2020-07-13] VITALS: Ht 177.8 cm; Wt 72.6 kg
[2020-07-13] MEDS ORDERED: ALBUTEROL (0.083%) 2.5MG/3ML NEB HHN STA (16:45)
[2020-07-13] MEDS ORDERED: LEVOFLOXACIN 500MG PREMIX 100 ML IV ONE (16:45)
[2020-07-13] MEDS ORDERED: IPRATROPIUM BROMIDE (0.02%) 0.5MG/2.5ML NEB HHN STA (16:45)
[2020-07-13 16:46] LABS: BASOPHILS % 0.4 % (0.0-2.0); HEMATOCRIT. 33.9 % (42.0-52.0); HEMOGLOBIN. 10.9 g/dL (14.0-18.0); LYMPHOCYTES % 8.3 % (20.0-50.0); MEAN CORPUSCULAR HEMOGLOBIN 22.3 pg (28.0-32.0); MEAN CORPUSCULAR VOLUME 69.4 fL (80.0-94.0); MEAN PLATELET VOLUME 7.8 fl (7.4-10.4); MONOCYTES % 5.8 % (2.0-8.0); NEUTROPHILS % 85.5 % (40.0-76.0); PLATELET 266 x1000/uL (130-400); RED BLOOD CELL COUNT 4.89 mill/uL (4.7-6.1); RED CELL DISTRIBUTION WIDTH 18.1 % (11.6-14.6)
[2020-07-13 16:51] LABS: CHLORIDE 110 mEq/L (98-107)
[2020-07-13] MEDS ORDERED: FUROSEMIDE 100MG/10ML VIAL IVP ONE (17:00)
[2020-07-13 17:01] LABS: PLATELET ESTIMATE NORMAL
[2020-07-14] VITALS (7 sets, daily range): BP systolic 131–154; BP diastolic 79–96
[2020-07-14] MEDS ORDERED: DIPHENHYDRAMINE 50MG/ML VIAL IV PRN (03:15)
[2020-07-14 05:56] LABS: BASOPHILS % 0.3 % (0.0-2.0); EOSINOPHILS % 0.7 % (0.0-5.0); HEMATOCRIT. 31.3 % (42.0-52.0); LYMPHOCYTES % 10.2 % (20.0-50.0); MEAN CORPUSCULAR HEMOGLOBIN 22.3 pg (28.0-32.0); MEAN CORPUSCULAR VOLUME 69.8 fL (80.0-94.0); MONOCYTES % 6.7 % (2.0-8.0); NEUTROPHILS % 82.1 % (40.0-76.0); PLATELET 228 x1000/uL (130-400); RED BLOOD CELL COUNT 4.49 mill/uL (4.7-6.1)
[2020-07-14] MEDS: PANTOPRAZOLE 40MG DR TABLET PO SCH ×2 (08:06→10:05)
[2020-07-14] MEDS ORDERED: FUROSEMIDE 20MG/2ML VIAL IVP SCH (09:00)
[2020-07-14] MEDS: ENOXAPARIN 30MG/0.3ML SYR SUBCUT SCH (10:03)
[2020-07-14] MEDS: POTASSIUM CHLORIDE 20MEQ TABLET SR PO SCH (10:04)
[2020-07-14] MEDS: AMLODIPINE 5MG TABLET PO SCH (10:04)
[2020-07-14] MEDS: CLOPIDOGREL 75MG TABLET PO SCH (10:04)
[2020-07-14] MEDS: ASPIRIN 81MG TABLET PO SCH (10:04)
[2020-07-14] MEDS: METOPROLOL TARTRATE 25MG TABLET PO SCH ×2 (10:04→20:46)
[2020-07-14] MEDS: LOSARTAN POTASSIUM 100 MG TABLET PO SCH (10:04)
[2020-07-14] MEDS: DOCUSATE SODIUM SUGAR FREE 100MG/10ML UDC PO SCH (10:12)
[2020-07-14] MEDS: ACETAMINOPHEN 325MG TABLET PO PRN ×2 (11:40→12:57)
[2020-07-14] MEDS: IPRATROPIUM/ALBUTEROL 0.5-3(2.5)MG/3ML NEB HHN PRN ×2 (13:07→20:17)
[2020-07-14] MEDS ORDERED: LORAZEPAM 0.5MG TABLET PO PRN (13:45)
[2020-07-14] MEDS: ALPRAZOLAM 0.5 MG TABLET PO PRN (14:27)
[2020-07-14] MEDS: CARVEDILOL 6.25 MG TABLET PO SCH (20:45)
[2020-07-14] MEDS ORDERED: ATORVASTATIN CALCIUM 40MG TABLET PO SCH (21:00)
[2020-07-15] VITALS: BP 131/73
[2020-07-15] MEDS: ALPRAZOLAM 0.5 MG TABLET PO PRN (01:06)
[2020-07-15 04:00] VITALS: BP 121/91
[2020-07-15 08:06] VITALS: BP 118/77
[2020-07-15 08:07] VITALS: BP 128/82
[2020-07-15 08:59] LABS: BASOPHILS % 0.3 % (0.0-2.0); EOSINOPHILS % 2.4 % (0.0-5.0); HEMATOCRIT. 29.6 % (42.0-52.0); HEMOGLOBIN. 9.8 g/dL (14.0-18.0); LYMPHOCYTES % 19.2 % (20.0-50.0); MEAN CORPUSCULAR VOLUME 69.7 fL (80.0-94.0); MEAN PLATELET VOLUME 7.8 fl (7.4-10.4); MONOCYTES % 8.3 % (2.0-8.0); NEUTROPHILS % 69.8 % (40.0-76.0); PLATELET 220 x1000/uL (130-400); RED BLOOD CELL COUNT 4.25 mill/uL (4.7-6.1)
[2020-07-15] MEDS ORDERED: FUROSEMIDE 40MG/4ML VIAL IVP SCH (09:00)
[2020-07-15] MEDS: POTASSIUM CHLORIDE 20MEQ TABLET SR PO SCH (09:12)
[2020-07-15] MEDS: CLOPIDOGREL 75MG TABLET PO SCH (09:12)
[2020-07-15] MEDS: DOCUSATE SODIUM SUGAR FREE 100MG/10ML UDC PO SCH (09:12)
[2020-07-15] MEDS: ASPIRIN 81MG TABLET PO SCH (09:12)
[2020-07-15] MEDS: AMLODIPINE 5MG TABLET PO SCH (09:13)
[2020-07-15] MEDS: LOSARTAN POTASSIUM 100 MG TABLET PO SCH (09:13)
[2020-07-15] MEDS: METOPROLOL TARTRATE 25MG TABLET PO SCH (09:13)
[2020-07-15] MEDS: CARVEDILOL 6.25 MG TABLET PO SCH (09:13)
[2020-07-15] MEDS: ENOXAPARIN 30MG/0.3ML SYR SUBCUT SCH (09:14)
[2020-07-15 11:58] VITALS: BP 108/73
[2020-07-15 13:43] LABS: *AMPHETAMINES SCREEN URINE NEGATIVE (NEGATIVE); *BARBITURATES SCREEN URINE NEGATIVE (NEGATIVE); *BENZODIAZEPINES SCREEN URINE NEGATIVE (NEGATIVE); *COCAINE SCREEN URINE NEGATIVE (NEGATIVE); METHADONE URINE SCREEN NEGATIVE (NEGATIVE); OPIATES URINE SCREEN NEGATIVE (NEGATIVE)
[2020-07-15 13:44] LABS: CANNABINOID URINE SCREEN NEGATIVE (NEGATIVE); PHENCYCLIDINE URINE SCREEN NEGATIVE (NEGATIVE)
[2020-07-15 16:02] VITALS: BP 117/83
== END 2020-07-15 17:05 | disposition home or self-care (01) | DRG 291 ==
LOC: ER 16:00 → 6WST 22:35 → EDBEDREQTM 22:38 → EDBEDREQ 22:38 → ENRESERV 23:26
PROVIDERS: ADMIT Internal Medicine Pulmonary Disease; ATTEND Internal Medicine Pulmonary Disease
DX: I13.0 Hypertensive heart and chronic kidney disease with heart failure and stage 1 through stage 4 chronic kidney disease, or unspecified chronic kidney disease (principal); I50.23 Acute on chronic systolic (congestive) heart failure; J18.9 Pneumonia, unspecified organism; E44.1 Mild protein-calorie malnutrition; N17.9 Acute kidney failure, unspecified; I42.0 Dilated cardiomyopathy; D64.9 Anemia, unspecified; N18.9 Chronic kidney disease, unspecified; E87.5 Hyperkalemia; F41.9 Anxiety disorder, unspecified; I25.2 Old myocardial infarction; I25.5 Ischemic cardiomyopathy; Z20.822 Contact with and (suspected) exposure to COVID-19; Z88.6 Allergy status to analgesic agent; Z88.0 Allergy status to penicillin; E78.5 Hyperlipidemia, unspecified; I07.1 Rheumatic tricuspid insufficiency; I25.10 Atherosclerotic heart disease of native coronary artery without angina pectoris; I45.10 Unspecified right bundle-branch block; I73.9 Peripheral vascular disease, unspecified; Z82.49 Family history of ischemic heart disease and other diseases of the circulatory system; Z87.891 Personal history of nicotine dependence; Z95.1 Presence of aortocoronary bypass graft; Z95.5 Presence of coronary angioplasty implant and graft; Z79.82 Long term (current) use of aspirin; Z79.899 Other long term (current) drug therapy; Z68.23 Body mass index [BMI] 23.0-23.9, adult
CPT/HCPCS: 36415; 71045; 80048; 80053; 80061; 80305; 83605; 83880; 84484; 85025; 87426; 93306; 94640; 99291; J1200; J1650; J1940; J1956